=== PATIENT | male | born 1960 | race Caucasian/White ===

== ENCOUNTER 2020-12-28 15:25 | Outpatient (RCR) | payer OTHER, SELFPAY ==
[2020-12-28] MEDS: COVID-19 VACC, MRNA(PFIZER)/PF 30 MCG/0.3 ML SYRINGE IM (13:22)
[2021-01-18] MEDS: COVID-19 VACC, MRNA(PFIZER)/PF 30 MCG/0.3 ML SYRINGE IM (12:41)
== END 2020-12-28 23:59 ==
LOC: IMMUN 15:25
PROVIDERS: PCP Family Medicine; Visit Provider Family Medicine
DX: Z23 Encounter for immunization (principal)
CPT/HCPCS: 0001A; 0002A; 91300

== ENCOUNTER 2023-04-03 14:06 | Observation (INO) | payer OTHER, SELFPAY ==
[2023-04-03] VITALS (13 sets, daily range): BP systolic 97–127; BP diastolic 60–115; PULSE 64–155; RESP 16–21; TEMP 36.1–36.9; O2SAT 94–100; BMI 31.2; BMI 31.5
[2023-04-03] MEDS: dilTIAZem 25 MG/5 ML Vial IV BOLUS (14:34)
[2023-04-03] MEDS: Aspirin 81 MG TAB.CHEW 324 MG PO (14:34)
[2023-04-03] MEDS: 0.9% Normal Saline 1,000 ML 1000 ML IV (14:34)
--- NOTE | 2023-04-03 14:36 | RAD_ITS ---
EXAM: XR CHEST, 1 VIEW CLINICAL INDICATION: chest pain TECHNIQUE: Frontal view of the chest. COMPARISON: No relevant prior studies available. FINDINGS: LUNGS AND PLEURAL SPACES: Unremarkable. No consolidation or edema. No pneumothorax. No effusion. HEART: Unremarkable. Cardiac silhouette not enlarged. MEDIASTINUM: Central airways and mediastinal contour are unremarkable. BONES/JOINTS: Unremarkable. SOFT TISSUES: Unremarkable. RAD/Chest 1 View (Portable) IMPRESSION: No radiographic evidence of acute cardiopulmonary disease. Electronically Signed: Tristan Polanco MD at 15:06 EDT ,
[2023-04-03 14:40] LABS: Absolute Lymphocyte Count 2.08 X10^3/uL (0.83-4.51); Absolute Neutrophil Count 8.6 X10^3/uL (2.0-7.7); Basophil# 0.06 X10^3/uL; Basophil% 0.5 % (0-1); Eosinophil# 0.14 X10^3/uL; Eosinophils% 1.2 % (0-5); Hematocrit 46.4 % (40-54); Hemoglobin 16.2 g/dL (13.0-16.5); Lymphocyte # 2.08 X10^3/ul (0.83-4.51); Lymphocyte % 17.8 % (19-41); Mean Corp Hgb Conc 34.9 g/dL (32-36); Mean Corpuscular Volume 88.9 fL (80-94); Mean Platelet Vol. 11.3 fl (6.2-12.0); Monocyte# 0.81 X10^3/uL; Monocyte% 6.9 % (0-10); NRBC Flagged by Analyzer 0 % (0-5); Neutrophil # 8.58 X10^3/uL (2.7-7.7); Neutrophil % 73.3 % (47-70); Platelet Count 268 K/mm3 (150-450); RBC Distribution Width SD 42.3 fl (35.1-43.9); Red Blood Count 5.22 M/mm3 (4.6-6.2); White Blood Count 11.7 K/mm3 (4.4-11.0)
[2023-04-03 14:59] LABS: Anion Gap 9 (5-15); BUN 35 mg/dL (7-18); BUN/Creat Ratio 21.9 RATIO (10-20); Calcium,Total 9.3 mg/dL (8.5-10.1); Chloride 104 mmol/L (98-107); EST Glomerular Filtration Rate 47 mL/min (>60); Est Glom Filt Rate - Afr Amer 56 mL/min (>60); Estimated Creatinine Clearance 46.64 ml/min; Glucose 165 mg/dL (74-106); Potassium 3.3 mmol/L (3.5-5.1); Sodium Level 137 mmol/L (136-145); Troponin-I HS (w/2H Reflex) 37 pg/mL (3.0-78.0)
[2023-04-03 15:05] LABS: BNP,B-Type NATRIURETIC PEPTIDE 15.3 pg/mL (0-100)
[2023-04-03 15:47] LABS: D-Dimer Quantitative (DVT/PE) < 0.27 FEU/ug/m (0.27-0.49)
--- NOTE | 2023-04-03 15:48 | EDS_ITS ---
HPI History of Present Illness Chief Complaint: Chest Pain Narrative Narrative: 63-year-old male presenting with chest pain. He states that he was out using his chainsaw outside and noticed that his chest was getting tight. He states he started to feel short of breath. Patient states that even walking was making him severely short of breath. Patient has history of hypertension and hyperlipidemia. No history of CAD that he knows of. Patient was concerned it might have been due to adding losartan last week to his blood pressure regimen. [facility] Medical History High cholesterol HTN (hypertension) Home Medications atorvastatin 10 mg tablet 10 mg PO DAILY 04/03/23 [History Last Taken Unknown] hydrochlorothiazide 12.5 mg capsule 12.5 mg PO DAILY 04/03/23 [History Last Taken Unknown] losartan 100 mg-hydrochlorothiazide 25 mg tablet 1 tab PO DAILY 04/03/23 [History Last Taken Unknown] losartan 50 mg tablet 50 mg PO DAILY 04/03/23 [History Last Taken Unknown] Allergy/AdvReac Type Severity Reaction Status Date / Time codeine Allergy Nausea Verified 04/03/23 14:10 tetracycline Allergy Hives Verified 04/03/23 14:10 Social History Smoking Status: Never smoker ROS ROS ED Constitutional Constitutional ED: Denies chills or fever(s) Eyes Eyes: Denies blurry vision or change in vision ENT ENT ED: Denies rhinorrhea or sore throat Cardiovascular Cardiovascular: Reports chest pain and palpitations Respiratory/Chest Respiratory/Chest: Reports dyspnea and dyspnea on exertion Gastrointestinal Gastrointestinal: Denies abdominal pain or constipation Genitourinary Genitourinary ED: Denies dysuria or hematuria Musculoskeletal Musculoskeletal: Denies arthralgias or back pain Integumentary Denies abscess or Abrasions Neurologic Neurologic: Denies headache(s) or paresthesias Psychiatric Psychiatric: Denies anxiety EXAM Physical Exam Const Vital Signs: 04/03/23 14:07 04/03/23 14:17 04/03/23 14:18 Temperature 96.9 F L Temperature Source Temporal Pulse Rate 114 H 155 H Respiratory Rate 18 Respiratory Effort Normal Non-Labored Blood Pressure 97/70 Blood Pressure Mean 79 Pulse Ox 98 Oxygen Delivery Method Room Air 04/03/23 14:26 04/03/23 15:06 04/03/23 16:00 Temperature Temperature Source Pulse Rate 89 98 Respiratory Rate 17 20 H Respiratory Effort Blood Pressure 120/60 106/72 Blood Pressure Mean 80 83 Pulse Ox 94 Oxygen Delivery Method Room Air Room Air Room Air Heart Score History: Moderately Suspicious ECG: Normal Age: >45 - <65 years Risk Factors: 1 or 2 Risk Factors Score: 3 MDM MDM MDM Narrative Medical decision making narrative: 63-year-old male presenting with chest tightness and shortness of breath. This started while he was working in his yard earlier today. EKG was performed on arrival and on my interpretation it is atrial fibrillation with RVR at a rate of 160 bpm. I do not see any evidence of ischemia. CBC will be obtained to assess white blood cell count, hemoglobin, platelets. BMP to assess renal function, electrolytes high-sensitivity troponin, BNP and D-dimer will be obtained to rule out ischemia, CHF, PE. Patient given Cardizem 20 mg and a liter of IV fluids. His heart rate did slow down. Repeat EKG shows atrial fibrillation at a rate of 87 bpm without sign of ischemic change. CBC shows a leukocytosis of 11.7. Hemoglobin stable at 16.2, platelets 268. Creatinine is 1.60. GFR 47. Potassium low at 3.3. Reviewed on clinical setting and the patient's creatinine on 01/01/2023 was 0.69. GFR was 104. High-sensitivity troponin came back at 37. BNP 15.3. D-dimer negative. Patient was blood pressure 106/72 now. Heart rate 98. Discussed with hospitalist for admission. He wanted to start a low- dose Cardizem drip. He also requested a bolus of IV fluids which was provided. Impression: 1. New onset A-fib 2. Chest pain 3. CORWIN 4. Hypo- Lab Data Attestation: I reviewed the patient's lab results. Labs: Laboratory Results - last 24 hr 04/03/23 04/03/23 04/03/23 14:20 14:20 14:20 WBC 11.7 H RBC 5.22 Hgb 16.2 Hct 46.4 MCV 88.9 MCH 31.0 MCHC 34.9 RDW Std Deviation 42.3 RDW Coeff of Mary 13.0 Plt Count 268 MPV 11.3 Immature Gran % (Auto) 0.300 Neut % (Auto) 73.3 H Lymph % (Auto) 17.8 L Harris % (Auto) 6.9 Eos % (Auto) 1.2 Baso % (Auto) 0.5 Absolute Neuts (auto) 8.6 H Absolute Lymphs (auto) 2.08 Nucleated RBC % 0 D-Dimer Quant (PE/DVT) Sodium 137 Potassium 3.3 L Chloride 104 Carbon Dioxide 24.0 Anion Gap 9 BUN 35 H Creatinine 1.60 H Estim Creat Clear Calc 46.64 Est GFR (MDRD) Af Amer 56 L Est GFR (MDRD) Non-Af 47 L BUN/Creatinine Ratio 21.9 H Glucose 165 H Calcium 9.3 Troponin I High Sens 37 B-Natriuretic Peptide 15.3 04/03/23 14:45 WBC RBC Hgb Hct MCV MCH MCHC RDW Std Deviation RDW Coeff of Mary Plt Count MPV Immature Gran % (Auto) Neut % (Auto) Lymph % (Auto) Harris % (Auto) Eos % (Auto) Baso % (Auto) Absolute Neuts (auto) Absolute Lymphs (auto) Nucleated RBC % D-Dimer Quant (PE/DVT) < 0.27 L Sodium Potassium Chloride Carbon Dioxide Anion Gap BUN Creatinine Estim Creat Clear Calc Est GFR (MDRD) Af Amer Est GFR (MDRD) Non-Af BUN/Creatinine Ratio Glucose Calcium Troponin I High Sens B-Natriuretic Peptide Radiography Diagnostic Testing: Clinical Impression(s) from Imaging Studies Chest X-Ray 04/03/23 14:36 IMPRESSION: No radiographic evidence of acute cardiopulmonary disease. Electronically Signed: Tristan Polanco MD at 15:06 EDT Reading Location ID and State: [facility] / [place] , Service support , Discharge Plan Triage Chief Complaint: Chest Pain ED Provider: Harman Barnett Dx/Rx/DC Orders Prescriptions: No Action losartan 50 mg tablet 50 mg PO DAILY atorvastatin 10 mg tablet 10 mg PO DAILY losartan-hydrochlorothiazide 100-25 mg tablet 1 tab PO DAILY hydrochlorothiazide 12.5 mg capsule 12.5 mg PO DAILY Primary Care Provider: Ranjit Self Referrals: Ranjit Self MD [Primary Care Provider] -
[2023-04-03] MEDS: Potassium Chloride Oral Tablet 20 MEQ PO (16:09)
[2023-04-03 16:34] LABS: Reflex Troponin-HS? (from REC) Y
[2023-04-03] MEDS: 0.9% Normal Saline 1,000 ML 999 ML IV (17:20)
[2023-04-03 17:28] LABS: Troponin-I HS 73 pg/mL (3.0-78.0)
--- NOTE | 2023-04-03 20:03 | HP.PCM_ITS ---
HPI - General General Date of Admission: 04/03/23 Date of Service: 04/03/23 Chief Complaint: Chest discomfort HPI Narrative DIONISIO ALBARRAN, is a 63 M with a history of hypertension and hypercholesterolemia and who presents to the emergency department with 1 day history of chest discomfort. Described as tightness and squeezing. Initial episode was associated with diaphoresis and weakness. Usually brought on with activity and exertion and relieved with rest. Has never had similar symptoms in the past. Had a stress test 12 years ago that was normal. Emergency department was found to be in atrial fibrillation with rapid ventricular response with rates as high as 1 50-1 60. Given a dose of IV Cardizem 20 mg and heart rate 100. Patient's BUN and creatinine were noted to elevated. Of note is that patient recently had his losartan increased from 50 to 100 mg daily and newly started on hydrochlorothiazide. [facility] Medical History High cholesterol HTN (hypertension) Home Medications atorvastatin 10 mg tablet 10 mg PO DAILY 04/03/23 [History Last Taken Unknown] hydrochlorothiazide 12.5 mg capsule 12.5 mg PO DAILY 04/03/23 [History Last Taken Unknown] losartan 100 mg-hydrochlorothiazide 25 mg tablet 1 tab PO DAILY 04/03/23 [History Last Taken Unknown] losartan 50 mg tablet 50 mg PO DAILY 04/03/23 [History Last Taken Unknown] Allergy/AdvReac Type Severity Reaction Status Date / Time codeine Allergy Nausea Verified 04/03/23 14:10 tetracycline Allergy Hives Verified 04/03/23 14:10 other (Family history of atrial fibrillation in both parents) Social History Smoking Status: Never smoker ROS ROS Narrative Denies any abdominal pain nausea vomiting. All other systems reviewed and essentially negative as above in the body of the history. Vital Signs Vital Signs Vital Signs: 04/03/23 14:07 04/03/23 14:17 04/03/23 14:18 Temperature 36.1 C L Temperature Source Temporal Pulse Rate 114 H 155 H Respiratory Rate 18 Respiratory Effort Normal Non-Labored Blood Pressure 97/70 Blood Pressure Mean 79 Blood Pressure Source Blood Pressure Position Blood Pressure Location Pulse Ox 98 Oxygen Delivery Method Room Air 04/03/23 14:26 04/03/23 15:06 04/03/23 16:00 Temperature Temperature Source Pulse Rate 89 98 Respiratory Rate 17 20 H Respiratory Effort Blood Pressure 120/60 106/72 Blood Pressure Mean 80 83 Blood Pressure Source Blood Pressure Position Blood Pressure Location Pulse Ox 94 Oxygen Delivery Method Room Air Room Air Room Air 04/03/23 17:14 04/03/23 17:18 04/03/23 18:00 Temperature 36.6 C 36.6 C Temperature Source Temporal Temporal Pulse Rate 92 100 87 Respiratory Rate 21 H 21 H 16 Respiratory Effort Blood Pressure 116/87 H 116/80 113/78 Blood Pressure Mean 96 92 89 Blood Pressure Source Monitor Blood Pressure Position Semi-Fowlers Blood Pressure Location Right Arm Pulse Ox 97 97 100 Oxygen Delivery Method Room Air Room Air Room Air 04/03/23 19:00 Temperature 36.7 C Temperature Source Temporal Pulse Rate 90 Respiratory Rate 18 Respiratory Effort Blood Pressure 127/115 H Blood Pressure Mean 119 Blood Pressure Source Monitor Blood Pressure Position Semi-Fowlers Blood Pressure Location Left Arm Pulse Ox 98 Oxygen Delivery Method Room Air Weight Weight: 96.8 kg Body Mass Index (BMI) 31.5 Physical Exam Narrative General exam. Middle-aged man, well-built, healthy-appearing not in any obvious distress HEENT. Oral mucosa moist no pallor or jaundice Neck. Neck is supple. There is jugular venous distention 2+ positive hepatojugular reflux. Heart. Heart sounds are irregular. No murmurs. Lungs. Clear to auscultation Extremities. No pedal edema Abdomen. Full and soft nontender. No organomegaly. [employer]. Conscious alert and oriented x3. Cranial. Grossly intact. Results Lab / Micro Data Attestation: I reviewed the patient's lab results. Result Diagrams: 04/03/23 14:20 04/03/23 14:20 Labs: Laboratory Results - last 24 hr 04/03/23 14:20: WBC 11.7 H, RBC 5.22, Hgb 16.2, Hct 46.4, MCV 88.9, MCH 31.0, MCHC 34.9, RDW Std Deviation 42.3, RDW Coeff of Mary 13.0, Plt Count 268, MPV 11.3, Immature Gran % (Auto) 0.300, Neut % (Auto) 73.3 H, Lymph % (Auto) 17.8 L, Nash % (Auto) 6.9, Eos % (Auto) 1.2, Baso % (Auto) 0.5, Absolute Neuts (auto) 8.6 H, Absolute Lymphs (auto) 2.08, Nucleated RBC % 0 04/03/23 14:20: Sodium 137, Potassium 3.3 L, Chloride 104, Carbon Dioxide 24.0, Anion Gap 9, BUN 35 H, Creatinine 1.60 H, Estim Creat Clear Calc 46.64, Est GFR (MDRD) Af Amer 56 L, Est GFR (MDRD) Non-Af 47 L, BUN/Creatinine Ratio 21.9 H, Glucose 165 H, Calcium 9.3, Troponin I High Sens 37 04/03/23 14:20: B-Natriuretic Peptide 15.3 04/03/23 14:45: D-Dimer Quant (PE/DVT) < 0.27 L 04/03/23 16:55: Troponin I High Sens 73 Radiology Impression Chest X-Ray 04/03/23 14:36 IMPRESSION: No radiographic evidence of acute cardiopulmonary disease. Electronically Signed: Tristan Polanco MD at 15:06 EDT Reading Location ID and State: [facility] / [place] , Service support , Assessment & Plan Assessment/Plan (1) Atrial fibrillation with rapid ventricular response: PLAN: Plan Assessment plan 1. Chest pain/pressure. Normal troponins. Suspect unstable angina. Will order stress test. Consult cardiology. Cycle troponins and EKG. Keep on telemetry. Closely monitor. Continue aspirin. 2. New onset/newly detected atrial fibrillation with rapid ventricular response. Received a bolus of Cardizem IV and will continue on Cardizem drip. Titrate for heart rate 90-100. Cardiology consultation as above. We will check echocardiogram. D-dimer was negative. 3. Acute kidney injury. Most likely secondary to recent increase in dose of losartan and initiation of hydrochlorothiazide. Some possible volume depletion and dehydration as well. We will hold his antihypertensives. IV fluid boluses and maintenance. Recheck renal function panel in the morning. Patient reassured. Charges/Coding Visit Charges Inpatient E&M: 01489 Init Hosp L3
[2023-04-03] MEDS: dilTIAZem 30 MG Tablet PO (22:40)
[2023-04-03] MEDS: 0.9% Normal Saline 1,000 ML 75 ML IV (22:43)
[2023-04-03 22:57] LABS: Troponin-I HS 104 pg/mL (3.0-78.0)
[2023-04-04 02:45] VITALS: BP 102/54; PULSE 66; RESP 16; TEMP 36.6; O2SAT 97
[2023-04-04] MEDS: Aspirin 81 MG TAB.CHEW PO (06:12)
[2023-04-04 06:32] LABS: Absolute Lymphocyte Count 2.78 X10^3/uL (0.83-4.51); Absolute Neutrophil Count 3.9 X10^3/uL (2.0-7.7); Basophil# 0.04 X10^3/uL; Basophil% 0.5 % (0-1); Eosinophil# 0.31 X10^3/uL; Eosinophils% 3.9 % (0-5); Hematocrit 40.6 % (40-54); Hemoglobin 13.6 g/dL (13.0-16.5); Lymphocyte # 2.78 X10^3/ul (0.83-4.51); Lymphocyte % 35.3 % (19-41); Mean Corp Hgb Conc 33.5 g/dL (32-36); Mean Corpuscular Hgb 30.9 pg (27.0-32.0); Mean Corpuscular Volume 92.3 fL (80-94); Mean Platelet Vol. 11.4 fl (6.2-12.0); Monocyte% 10.2 % (0-10); NRBC Flagged by Analyzer 0 % (0-5); Neutrophil # 3.89 X10^3/uL (2.7-7.7); Neutrophil % 49.5 % (47-70); Platelet Count 198 K/mm3 (150-450); RBC Distribution Width CV 13.2 % (11.6-14.6); RBC Distribution Width SD 44.9 fl (35.1-43.9); White Blood Count 7.9 K/mm3 (4.4-11.0)
[2023-04-04 07:15] LABS: ALB/GLOB Ratio 1.2 RATIO (0.9-2.4); AST(SGOT) 11 U/L (15-37); Alanine Aminotransfer ALT/SGPT 18 U/L (16-61); Albumin, Serum 3.2 g/dL (3.2-5.0); Alkaline Phosphatase 55 U/L (45-117); Anion Gap 4 (5-15); BUN 25 mg/dL (7-18); BUN/Creat Ratio 27.6 RATIO (10-20); Chloride 113 mmol/L (98-107); Cholesterol 129 mg/dL (200); Creatinine, Serum 0.91 mg/dL (0.70-1.30); EST Glomerular Filtration Rate 90 mL/min (>60); Est Glom Filt Rate - Afr Amer 108 mL/min (>60); Estimated Creatinine Clearance 82.01 ml/min; Globulin 2.7 g/dL (2.2-4.2); Glucose 114 mg/dL (74-106); High Density Lipoprotein 33 mg/dL; Magnesium 2.2 mg/dL (1.6-2.6); Phosphorus 2.5 mg/dL (2.5-4.9); Potassium 3.6 mmol/L (3.5-5.1); Protein, Total 5.9 g/dL (6.4-8.2); Sodium Level 142 mmol/L (136-145); Thyroid Stim Hormone (TSH) 0.74 uIU/mL (0.358-3.74); Triglycerides 179 mg/dL; Troponin-I HS 78 pg/mL (3.0-78.0); Very Low Density Lipoprotein 36 mg/dL (5-40)
[2023-04-04 07:20] LABS: Hemoglobin A1c 5.3 % (3.8-5.6)
--- NOTE | 2023-04-04 08:15 | ECHOCS_ITS ---
Reason For Study: Chest pain Procedure This was a 2D Doppler, Color Flow transthoracic echocardiogram. The study was technically difficult. Exam performed portable in patient room. Left Ventricle Normal size and thickness. The left ventricular ejection fraction is 55 %. Normal diastololic function. Right Ventricle Normal right ventricle. Atria The left and right atria are normal. Mitral Valve The mitral valve is structurally normal. No prolapse or stenosis seen. Trivial mitral valve insufficiency. Tricuspid Valve Trivial tricuspid valve insufficiency. Right ventricular systolic pressure estimated to be 40 mmHg. Aortic Valve Trisinus/trileaflet aortic valve. Mild-Moderate (1-2+) aortic valve insufficiency. Pulmonic Valve The pulmonic valve is not well visualized. Great Vessels Normal sized aortic root. Pericardium/Pleural No pericardial effusion. Medication Diluted definity 2ml given slow IV push to enhance endocardial definition. MMode/2D Measurements & Calculations LVIDd: 5.3 cm IVSd: 0.92 cm Ao root diam: 3.2 cm LVIDs: 3.1 cm LVPWd: 1.0 cm RVDd: 3.8 cm FS: 40.5 % LAV(MOD-bp): 57.1 ml LVAd ap4: 32.0 cm2 LVAd ap2: 29.7 cm2 LAV(MOD-bp) Indexed: 26.9 ml/m2 LVLd ap4: 8.2 cm LVLd ap2: 7.5 cm LAV(MOD-sp2): 67.1 ml EDV(MOD-sp4): 104.7 ml EDV(MOD-sp2): 97.3 ml LAV(MOD-sp4): 46.2 ml EDV(sp4-el): 105.9 ml EDV(sp2-el): 100.2 ml LVAs ap4: 19.9 cm2 LVAs ap2: 18.3 cm2 LVLs ap4: 6.6 cm LVLs ap2: 7.1 cm ESV(MOD-sp4): 54.4 ml ESV(MOD-sp2): 41.5 ml ESV(sp4-el): 51.3 ml ESV(sp2-el): 40.2 ml EF(MOD-sp4): 48.0 % EF(MOD-sp2): 57.3 % EF(sp4-el): 51.5 % SV(MOD-sp4): 50.3 ml SV(MOD-sp2): 55.8 ml SV(sp4-el): 54.6 ml LA A4 area: 17.0 cm2 LA dimension(2D): 3.8 cm RA A4 area: 20.2 cm2 TAPSE: 2.6 cm Time Measurements MV dec time: 0.22 sec Doppler Measurements & Calculations MV E max abbe: 73.3 cm/sec Lat Peak E' Abbe: 12.3 cm/sec Med Peak E' Abbe: 8.3 cm/sec MV A max abbe: 51.4 cm/sec E/E' lat: 6.0 E/E' med: 8.8 MV E/A: 1.4 Ao V2 max: 130.6 cm/sec AI max abbe: 457.1 cm/sec MV dec slope: 331.3 cm/sec2 Ao max P.8 mmHg AI max P.6 mmHg Ao V2 mean: 91.8 cm/sec Ao mean P.9 mmHg AI dec slope: 262.5 cm/sec2 Ao V2 VTI: 28.0 cm AI P1/2t: 510.0 msec AV (velocity ratio): 0.80 LV V1 max: 108.1 cm/sec PA V2 max: 75.0 cm/sec TR max abbe: 295.4 cm/sec LV V1 max P.7 mmHg TR max P.9 mmHg LV V1 mean P.4 mmHg LV V1 mean: 72.7 cm/sec LV V1 VTI: 22.4 cm ECHO/Echo Complete W/ Contrast Interpretation Summary The left ventricular ejection fraction is 55 %. Right ventricular systolic pressure estimated to be 40 mmHg. Mild-Moderate (1-2+) aortic valve insufficiency. Ordering Physician: Mica Lim Referring Physician: Ranjit Self Performed By: Kirstie Jackson RDCS
[2023-04-04 09:30] VITALS: BP 134/83; PULSE 64; RESP 16; TEMP 36.2; O2SAT 98
--- NOTE | 2023-04-04 09:51 | CON.PCM.CA_ITS ---
Assessment & Plan Assessment/Plan (1) Atrial fibrillation with rapid ventricular response: PLAN: Converted back to normal sinus rhythm spontaneously. [id number] score 1. Start on enteric-coated aspirin 325 mg daily. Start on p.o. diltiazem. (2) HTN (hypertension): PLAN: Controlled. Stop hydrochlorothiazide. Start diltiazem. (3) Chest pain: PLAN: Likely secondary to rapid ventricular rate with atrial fibrillation. Relieved with converting back to normal sinus rhythm. Stress Lexiscan ordered for this morning already. Will await for results. HPI Consult Data Date of Consult: 04/04/23 HPI Narrative Reason for Consultation: Atrial fibrillation HPI Narrative: Patient presented to the emergency room with complaints of chest tightness. Worse with exertion. He was noted to be in atrial fibrillation with rapid ventricular response. He was started on a diltiazem infusion. With slowing of his ventricular rate, his chest tightness completely disappeared. Overnight, he converted back to normal sinus rhythm spontaneously. Presently asymptomatic. Denies any previous history of coronary artery disease. Denies any previous history of angina pectoris. No orthopnea. No PND. No ankle edema. [facility] Medical History (Updated 04/04/23 @ 09:[address] Ashley Mccracken MD) High cholesterol HTN (hypertension) Home Medications atorvastatin 10 mg tablet 10 mg PO DAILY 04/03/23 [History Last Taken Unknown] hydrochlorothiazide 12.5 mg capsule 12.5 mg PO DAILY 04/03/23 [History Last Taken Unknown] losartan 100 mg-hydrochlorothiazide 25 mg tablet 1 tab PO DAILY 04/03/23 [History Last Taken Unknown] losartan 50 mg tablet 50 mg PO DAILY 04/03/23 [History Last Taken Unknown] Allergy/AdvReac Type Severity Reaction Status Date / Time codeine Allergy Nausea Verified 04/03/23 14:10 tetracycline Allergy Hives Verified 04/03/23 14:10 Family History other Social History Smoking Status: Never smoker Risk Stratification Risk Stratification Applicable: No Objective Data Vital Signs: Vital Signs Temp Pulse Resp BP Pulse Ox O2 Del Method 97.2 F L 64 16 134/83 H 98 Room Air 04/04/23 09:30 04/04/23 09:30 04/04/23 09:30 04/04/23 09:30 04/04/23 09:30 04/04/23 09:30 Oxygen Delivery Method Room Air Weight: 213 lb 6.519 oz Body Mass Index (BMI) 31.5 Intake & Output: Intake and Output for Last 24 Hours 04/02/23 04/03/23 04/04/23 23:59 23:59 23:59 Intake Total / Balance / Lab / Micro Data Result Diagrams: 04/04/23 05:47 04/04/23 05:47 Labs: Laboratory Results - last 24 hr 04/03/23 14:20: WBC 11.7 H, RBC 5.22, Hgb 16.2, Hct 46.4, MCV 88.9, MCH 31.0, MCHC 34.9, RDW Std Deviation 42.3, RDW Coeff of Mary 13.0, Plt Count 268, MPV 11.3, Immature Gran % (Auto) 0.300, Neut % (Auto) 73.3 H, Lymph % (Auto) 17.8 L, [place] % (Auto) 6.9, Eos % (Auto) 1.2, Baso % (Auto) 0.5, Absolute Neuts (auto) 8.6 H, Absolute Lymphs (auto) 2.08, Nucleated RBC % 0 04/03/23 14:20: Sodium 137, Potassium 3.3 L, Chloride 104, Carbon Dioxide 24.0, Anion Gap 9, BUN 35 H, Creatinine 1.60 H, Estim Creat Clear Calc 46.64, Est GFR (MDRD) Af Amer 56 L, Est GFR (MDRD) Non-Af 47 L, BUN/Creatinine Ratio 21.9 H, Glucose 165 H, Calcium 9.3, Troponin I High Sens 37 04/03/23 14:20: B-Natriuretic Peptide 15.3 04/03/23 14:45: D-Dimer Quant (PE/DVT) < 0.27 L 04/03/23 16:55: Troponin I High Sens 73 04/03/23 22:20: Troponin I High Sens 104 H 04/04/23 05:47: WBC 7.9, RBC 4.40 L, Hgb 13.6, Hct 40.6, MCV 92.3, MCH 30.9, MCHC 33.5, RDW Std Deviation 44.9 H, RDW Coeff of Mary 13.2, Plt Count 198, MPV 11.4, Immature Gran % (Auto) 0.600, Neut % (Auto) 49.5, Lymph % (Auto) 35.3, [place] % (Auto) 10.2 H, Eos % (Auto) 3.9, Baso % (Auto) 0.5, Absolute Neuts (auto) 3.9, Absolute Lymphs (auto) 2.78, Nucleated RBC % 0 04/04/23 05:47: Sodium 142, Potassium 3.6, Chloride 113 H, Carbon Dioxide 25.0, Anion Gap 4 L, BUN 25 H, Creatinine 0.91, Estim Creat Clear Calc 82.01, Est GFR (MDRD) Af Amer 108, Est GFR (MDRD) Non-Af 90, BUN/Creatinine Ratio 27.6 H, G lucose 114 H, Calcium 8.0 L, Phosphorus 2.5, Magnesium 2.2, Total Bilirubin 1.20 H, AST 11 L, ALT 18, Alkaline Phosphatase 55, Troponin I High Sens 78, Total Protein 5.9 L, Albumin 3.2, Globulin 2.7, Albumin/Globulin Ratio 1.2, Triglycerides 179, Cholesterol 129, LDL Cholesterol 60, VLDL Cholesterol 36, HDL Cholesterol 33 L, TSH 0.74 04/04/23 05:47: Hemoglobin A1c 5.3 Rhythm Strip Rhythm Strip: Sinus Rhythm Cardiology Labs/Tests 04/03/23 14:20: WBC 11.7 H, RBC 5.22, Hgb 16.2, Hct 46.4, MCV 88.9, MCH 31.0, MCHC 34.9, Plt Count 268, MPV 11.3, Immature Gran % (Auto) 0.300, Neut % (Auto) 73.3 H, Lymph % (Auto) 17.8 L, [place] % (Auto) 6.9, Eos % (Auto) 1.2, Baso % (Auto) 0.5, Absolute Neuts (auto) 8.6 H, Nucleated RBC % 0 04/03/23 14:20: Sodium 137, Potassium 3.3 L, Chloride 104, Carbon Dioxide 24.0, Anion Gap 9, BUN 35 H, Creatinine 1.60 H, Est GFR (MDRD) Af Amer 56 L, Est GFR (MDRD) Non-Af 47 L, BUN/Creatinine Ratio 21.9 H, Glucose 165 H, Calcium 9.3 04/03/23 14:20: B-Natriuretic Peptide 15.3 04/03/23 14:45: D-Dimer Quant (PE/DVT) < 0.27 L 04/04/23 05:47: WBC 7.9, RBC 4.40 L, Hgb 13.6, Hct 40.6, MCV 92.3, MCH 30.9, MCHC 33.5, Plt Count 198, MPV 11.4, Immature Gran % (Auto) 0.600, Neut % (Auto) 49.5, Lymph % (Auto) 35.3, [place] % (Auto) 10.2 H, Eos % (Auto) 3.9, Baso % (Auto) 0.5, Absolute Neuts (auto) 3.9, Nucleated RBC % 0 04/04/23 05:47: Sodium 142, Potassium 3.6, Chloride 113 H, Carbon Dioxide 25.0, Anion Gap 4 L, BUN 25 H, Creatinine 0.91, Est GFR (MDRD) Af Amer 108, Est GFR (MDRD) Non-Af 90, BUN/Creatinine Ratio 27.6 H, Glucose 114 H, Calcium 8.0 L, Phosphorus 2.5, Magnesium 2.2, Total Bilirubin 1.20 H, Triglycerides 179, Cholesterol 129, LDL Cholesterol 60, VLDL Cholesterol 36, HDL Cholesterol 33 L 04/04/23 05:47: Hemoglobin A1c 5.3 Rhythm: EKG: Admission ECG showed atrial fibrillation with rapid ventricular response. ECG this morning shows normal sinus rhythm. ECHO: Stress Test: Cardiac Cath: PCI: CT Surgery: Holter monitor: EPS: PPM: CXR: Chest CT Scan: Radiography Diagnostic Testing: Radiology Impression Chest X-Ray 04/03/23 14:36 IMPRESSION: No radiographic evidence of acute cardiopulmonary disease. Electronically Signed: Tristan Polanco MD at 15:06 EDT ,
--- NOTE | 2023-04-04 12:10 | CASEMGMT ---
RN CM Face to Face with patient for initial transition planning/care coordination assessment. RN CM introduced self and role at [facility]. Patient sitting in chair, alert and oriented, at bedside. Patient willing to participate in assessment and is able to answer all questions appropriately. Care providers, pharmacy, and demographics verified. Patient wishes to discharge home, denies need for home health at this time. Patient states he has no further needs or concerns at this time. CM to follow for discharge planning needs that may arise. PCP: Aramis Specialists: none Preferred Pharmacy: [facility] at discharge. Insurance: MMO Prescription Benefit: yes Living Will/HPOA: yes, Diana Lew LNOK: Living Arrangements: Patient lives with in a 3 story home. Patient is independent and able to ambulate stairs. Transportation: self, DME/HHC: Patient has crutches at home. No previous HHC or SNF. Disposition Plan: Patient to discharge home with family support and follow-up plans in place. Ashanti LYNN, RN, CM
--- NOTE | 2023-04-04 12:15 | STRESSREP ---
Stress Test Report Date: 04/04/2023 Procedure: Pharmacologic stress nuclear imaging study Indications: Chest pain Consent: Per the patient Procedure: The patient underwent pharmacologic (Regadenoson 0.4mg ) evaluation with a peak heart rate of 93 beats per minute (59%predicted maximal heart rate) and a peak blood pressure of 130/90 mmHg. The baseline ECG demonstrated normal sinus rhythm. The peak pharmacologic ECG demonstrated no ischemic changes. There were no cardiac dysrhythmias pretest, during pharmacologic infusion, or recovery. There was no complaint of chest discomfort during pharmacologic infusion or recovery. The patient was injected with 12 millicuries of technetium 99m Cardiolite and subsequently rest SPECT Cardiolite nuclear imaging was obtained in the horizontal long, vertical long, and short axis views. The patient underwent pharmacologic (Regadenoson) evaluation. The patient was injected with 36 millicuries of technetium 99m Cardiolite and subsequently stress SPECT Cardiolite nuclear imaging was obtained in the horizontal long, vertical long, and short axis views. A gated Cardiolite study at peak stress was obtained. The examination was stopped secondary to completion of protocol. Rest and stress SPECT Cardiolite nuclear imaging status post realignment, normalization, and attenuation correction demonstrate no fixed or reversible perfusion defects. There is end systolic thickening and brightening. The gated Cardiolite study demonstrates myocardial thickening and inward wall motion. The reported LVEF is 63%. Impression: 1. Pharmacologic (Regadenoson) evaluation 2. Peak pharmacologic ECG with no ischemic changes. 3. There were no cardiac dysrhythmias pretest, during pharmacologic infusion, or recovery. 5. No fixed or reversible perfusion defects. 6. The gated Cardiolite study reports an LVEF of 63%. This note was generated with [employer] software. It may contain incorrect words, spelling, and punctuation that were not noted in checking the note before signing.
[2023-04-04] MEDS: dilTIAZem 30 MG Tablet PO (13:35)
[2023-04-04] MEDS: Atorvastatin Calcium 10 MG Tablet PO (13:35)
[2023-04-04 13:38] VITALS: BP 131/83; PULSE 66; RESP 16; TEMP 37.1; O2SAT 99
--- NOTE | 2023-04-04 14:25 | PCM.DC.SUM ---
Providers Date of Admission: 04/03/23 Date of Discharge: 04/04/23 Primary Care Physician: Dr. Ranjit Self MD Consultations 04/03/23 18:15 Consult: Cardiology Routine Consulting Provider: [facility] Reason for Consult: afib RVR and unstable angina EMERGENT Consult: No MD Notified: Yes Date Notified: 04/03/23 Time Notified: 18:46 Method of Notification: Text Reason For Visit: ATRIAL FIBRILLATION WITH RVR Diagnosis Discharge Diagnosis (1) Atrial fibrillation with rapid ventricular response: Status: Acute Code(s): I48.91 - Unspecified atrial fibrillation (2) HTN (hypertension): Status: Chronic Code(s): I10 - Essential (primary) hypertension (3) Chest pain: Status: Acute Code(s): R07.9 - Chest pain, unspecified Medications at Discharge Home Medications atorvastatin 10 mg tablet 10 mg PO DAILY cholesterol 04/03/23 losartan 50 mg tablet 50 mg PO DAILY blood pressure 04/03/23 aspirin 325 mg tablet,delayed release 325 mg PO BREAKFAST #0 tabs 04/04/23 diltiazem HCl 30 mg tablet 30 mg PO Q8 #0 tabs 04/04/23 Hospital Course Procedures 2-D Echocardiogram and Nuclear stress test Summary of Care Provided Minutes Spent on Discharge: 36 Hospital Course: Mr. Lew is a 63-year-old white male who presented to the emergency department at [facility] on 04/04/2023 complaining of chest discomfort. Had been ongoing for approximately 1 day and he described it as tightness and squeezing. The initial episode was associate with diaphoresis and some weakness. He indicated it was usually brought on with activity and exertion and relieved with rest and he had never had this previously. In the emergency department he was found to be in A-fib with RVR with heart rates as high as 150-160. He was given an IV dose of Cardizem at 20 mg which improved his heart rate to 100. He had some mild CORWIN on presentation as well and noted that he had a recent increase in his losartan and was newly started on hydrochlorothiazide. He was admitted to cardiac floor and started on oral calcium channel blockers and cardiology evaluated the patient. An echocardiogram and a stress test were also ordered with his chest pain. His echocardiogram demonstrated an EF of 55%, right ventricular systolic pressure of 40 mmHg and mild to moderate aortic valve insufficiency. His stress test showed no fixed or reversible perfusion defects and an EF of 63%. His peak EKG had no ischemic changes. His TSH was within normal limits. His [id number] score is 1. He will be started on enteric-coated aspirin 125 mg daily and will remain on Cardizem 30 mg every 8 hours. During his hospital stay he actually converted back into normal sinus rhythm and was in an SR at the time of discharge. He is to follow-up with cardiology in the next 2 to 4 weeks and an appointment was made for him prior to discharge. He was able to be discharged home in stable condition on 04/04/2023. Prescriptions were faxed to his local pharmacy. We did recommend follow-up with his primary care physician within the next month for hospital follow-up. There is some concern that he may have some obstructive sleep apnea and at his discretion he will follow-up for sleep test. Information was given to him prior to discharge if he would like to pursue this further. Discharge diagnoses: New onset A-fib with RVR Chest pain-resolved Hypertension Hyperlipidemia Obesity Weight / BMI Weight Weight: 96.8 kg Body Mass Index (BMI) 31.5 ABG / Lab / Microbiology Data Result Diagrams: 04/04/23 05:47 04/04/23 05:47 Laboratory: Laboratory Results - last 24 hr 04/03/23 14:20: WBC 11.7 H, RBC 5.22, Hgb 16.2, Hct 46.4, MCV 88.9, MCH 31.0, MCHC 34.9, RDW Std Deviation 42.3, RDW Coeff of Mary 13.0, Plt Count 268, MPV 11.3, Immature Gran % (Auto) 0.300, Neut % (Auto) 73.3 H, Lymph % (Auto) 17.8 L, Garfield % (Auto) 6.9, Eos % (Auto) 1.2, Baso % (Auto) 0.5, Absolute Neuts (auto) 8.6 H, Absolute Lymphs (auto) 2.08, Nucleated RBC % 0 04/03/23 14:20: Sodium 137, Potassium 3.3 L, Chloride 104, Carbon Dioxide 24.0, Anion Gap 9, BUN 35 H, Creatinine 1.60 H, Estim Creat Clear Calc 46.64, Est GFR (MDRD) Af Amer 56 L, Est GFR (MDRD) Non-Af 47 L, BUN/Creatinine Ratio 21.9 H, Glucose 165 H, Calcium 9.3, Troponin I High Sens 37 04/03/23 14:20: B-Natriuretic Peptide 15.3 04/03/23 14:45: D-Dimer Quant (PE/DVT) < 0.27 L 04/03/23 16:55: Troponin I High Sens 73 04/03/23 22:20: Troponin I High Sens 104 H 04/04/23 05:47: WBC 7.9, RBC 4.40 L, Hgb 13.6, Hct 40.6, MCV 92.3, MCH 30.9, MCHC 33.5, RDW Std Deviation 44.9 H, RDW Coeff of Mary 13.2, Plt Count 198, MPV 11.4, Immature Gran % (Auto) 0.600, Neut % (Auto) 49.5, Lymph % (Auto) 35.3, Garfield % (Auto) 10.2 H, Eos % (Auto) 3.9, Baso % (Auto) 0.5, Absolute Neuts (auto) 3.9, Absolute Lymphs (auto) 2.78, Nucleated RBC % 0 04/04/23 05:47: Sodium 142, Potassium 3.6, Chloride 113 H, Carbon Dioxide 25.0, Anion Gap 4 L, BUN 25 H, Creatinine 0.91, Estim Creat Clear Calc 82.01, Est GFR (MDRD) Af Amer 108, Est GFR (MDRD) Non-Af 90, BUN/Creatinine Ratio 27.6 H, Glucose 114 H, Calcium 8.0 L, Phosphorus 2.5, Magnesium 2.2, Total Bilirubin 1.20 H, AST 11 L, ALT 18, Alkaline Phosphatase 55, Troponin I High Sens 78, Total Protein 5.9 L, Albumin 3.2, Globulin 2.7, Albumin/Globulin Ratio 1.2, Triglycerides 179, Cholesterol 129, LDL Cholesterol 60, VLDL Cholesterol 36, HDL Cholesterol 33 L, TSH 0.74 04/04/23 05:47: Hemoglobin A1c 5.3 Radiography Diagnostic Testing: Radiology Impression Chest X-Ray 04/03/23 14:36 IMPRESSION: No radiographic evidence of acute cardiopulmonary disease. Electronically Signed: Tristan Polanco MD at 15:06 EDT , Echocardiogram 04/04/23 08:15 Interpretation Summary The left ventricular ejection fraction is 55 %. Right ventricular systolic pressure estimated to be 40 mmHg. Mild-Moderate (1-2+) aortic valve insufficiency. Ordering Physician: Mica Lim Referring Physician: Ranjit Self Performed By: Kirstie Jackson RDCS D/C Instructions Discharge Diet: No restrictions Discharge Activity: Return to Normal Activity Return to work on: 04/05/23 Meaningful Use Info Meaningful Use Diagnoses (Choose all that apply): None applicable Discharge Plan Admission Admit Date/Time: 04/03/23 18:15 Primary Reason for Your Visit: Chest pain Attending Provider: Mica Lim Primary Care Provider: Ranjit Self Consulting Providers: Tana Shook ; Ashley Mccracken ; Bakari Russell ; Sergei Elias ; Jaime Banda ; Bryce Noriega ; Sean Arellano ; Aubrey Dorantes ; Krishna Black ; Dilma Lancaster ; Crystal Woods ; Mario Villareal ; Fab Herrera ; Jarrell Gilliland ; Garrick Bell REGULATORY COORDINATOR ; Tana Lopez NP ; Mariah Mancilla ; Ludin New Instructions Additional Instructions / Restrictions: 1. Would recommend following up to have a study for obstructive sleep apnea as this is a potential cause of developing atrial fibrillation that can be treated--> see information below and call for an appointment if you desire to have this evaluated further Discharge Orders/Prescriptions Prescriptions: New aspirin 325 mg Tablet,Delayed Release (Dr/Ec) 325 mg PO BREAKFAST Qty: 0 0RF diltiazem HCl 30 mg Tablet 30 mg PO Q8 Qty: 0 0RF Continued losartan 50 mg tablet 50 mg PO DAILY atorvastatin 10 mg tablet 10 mg PO DAILY Discontinued losartan-hydrochlorothiazide 100-25 mg tablet 1 tab PO DAILY hydrochlorothiazide 12.5 mg capsule 12.5 mg PO DAILY Referrals / Follow Up: Ranjit Self MD [Primary Care Provider] - Within 1 Month Stella Cabrera NP, REGULATORY COORDINATOR-C [Med Staff - Adv Practice Prof] - See Referral Note (Call and make an appointment for obstructive sleep apnea if you desire to have a sleep study) Disposition Disposition (needs filled in before D/C Order can be placed): Home, Self Care Charges/Coding Visit Charges Inpatient E&M: 00283 Disch Hosp >30min
== END 2023-04-04 15:38 | disposition home or self-care (01) | DRG 309 ==
LOC: ED 15:22 → PCU 18:24
PROVIDERS: Admitting Provider Internal Medicine; Emergency Provider Student in an Organized Health Care Education/Training Program; PCP Family Medicine; Visit Provider Internal Medicine
DX: I48.91 Unspecified atrial fibrillation (principal); N17.9 Acute kidney failure, unspecified; I10 Essential (primary) hypertension; G47.33 Obstructive sleep apnea (adult) (pediatric); Z79.82 Long term (current) use of aspirin; E66.9 Obesity, unspecified; R07.89 Other chest pain; Z68.31 Body mass index [BMI] 31.0-31.9, adult; E78.00 Pure hypercholesterolemia, unspecified; I08.3 Combined rheumatic disorders of mitral, aortic and tricuspid valves; Z79.899 Other long term (current) drug therapy; R06.02 Shortness of breath
CPT/HCPCS: 99284; 36415; 71045; 78452; 80048; 80053; 80061; 83036; 83735; 83880; 84100; 84443; 84484; 85025; 85379; 93005; 93017; 93306; 96361; 96365; 96366; 96375; 99221; A9500; J7030; Q9957; A4216; C8929; G0378; J2785